=== PATIENT | male | born 1970 | race Caucasian/White ===

== ENCOUNTER 2016-11-11 01:20 | Outpatient (CLI) | payer MEDICARE, OTHER ==
[2016-11-11 01:37] LABS: Bilirubin Negative (Negative); Blood, Urine Trace (Negative); Glucose, Urine (Dipstick) 100 mg/dL (Negative); Ketone, Urine Negative (Negative); Nitrite Negative (Negative); Protein, Urine (Dipstick) 30 mg/dL (Neg-Trace); Urobilinogen 0.2 mg/dL (0.2-1.0)
[2016-11-11 01:41] LABS: Bacteria/HPF 1+ HPF (None Seen); Squamous Epithelial 0-3 HPF (0-3)
== END 2016-11-11 01:21 | disposition home or self-care (01) ==
LOC: NAV LAB 01:20
PROVIDERS: ATTEND Internal Medicine
DX: A41.9 Sepsis, unspecified organism (principal)
CPT/HCPCS: 81001; 87077; 87086

== ENCOUNTER 2016-12-29 08:07 | Outpatient (CLI) | payer MEDICARE ==
[2016-12-29 09:51] LABS: Hemoglobin A1c 7.8 % (4.0-6.0)
== END 2016-12-29 08:08 | disposition home or self-care (01) ==
LOC: NAV LABSP 08:07
PROVIDERS: ATTEND Internal Medicine
DX: E11.9 Type 2 diabetes mellitus without complications (principal)
CPT/HCPCS: 36415; 83036

== ENCOUNTER 2017-03-29 18:54 | Outpatient (CLI) | payer MEDICARE, MEDICAID | END 2017-03-29 18:55 | disposition home or self-care (01) | LOC: NAV LABSP 18:54 | PROVIDERS: ATTEND Internal Medicine | DX: Z43.0 Encounter for attention to tracheostomy (principal); K03.2 Erosion of teeth | CPT/HCPCS: 87081 ==

== ENCOUNTER 2017-04-30 22:39 | Emergency (ER) | payer MEDICARE, OTHER ==
[2017-04-30] MEDS ORDERED: Sodium Chloride 0.9% 500 ML ONE (23:13)
--- NOTE | 2017-04-30 23:24 | RAD ---
PORTABLE SEMIUPRIGHT FRONTAL CHEST RADIOGRAPH 04/30/17 COMPARISON: 03/03/17 HISTORY: Altered mental status. FINDINGS: There is elevation of the right hemidiaphragm, stable. Stable tracheostomy tube. Heart and mediastin al contours are unchanged. No pneumothorax, pleural fluid, focal consolidation or alveolar edema. IMPRESSION: No acute findings. POS: [facility]
--- NOTE | 2017-04-30 23:42 | CT ---
CT HEAD WITHOUT CONTRAST 04/30/17 COMPARISON: 12/20/14 HISTORY: Altered mental status, difficulty arousing patient. TECHNIQUE: Serial axial CT imaging at 5 mm intervals from vertex through skull base without contrast. FINDINGS: Imaged paranasal sinuses/mastoid air cells well aerated. No displaced calvarial fracture. No intracr anial hemorrhage, midline shift, mass effect, or ventricular enlargement. No significant interval ch chacho. IMPRESSION: Stable head CT. No intracranial hemorrhage. If there is clinical for acute infarction, followup brai n MRI advised. POS: [facility]
[2017-05-01] MEDS ORDERED: Sodium Chloride 0.9% 1,000 ML ONE (00:53)
[2017-05-01 01:30] LABS: Band 7 % (5-11); Hemoglobin 7.7 g/dL (14.0-18.0); Lymphocytes 11 % (21-51); MDiff Complete? YES; Mean Corpuscular HGB CONC 33.1 g/dL (32.0-36.0); Mean Corpuscular Hemoglobin 27.9 pg (27.0-31.0); Mean Corpuscular Volume 84.3 fl (80.0-94.0); Mean Platelet Volume 6.7 fL (7.4-10.4); Monocytes 10 % (0-10); Neutrophil 72 % (42-75); PLT Morphology Comment Appears Adequate; Platelet Count 205 thou/uL (130-400); RBC Morphology Normal; Red Blood Cell (RBC) Count 2.76 mill/uL (4.70-6.10); White Blood Cell (WBC) Count 18.1 thou/uL (4.8-10.8)
[2017-05-01 01:37] LABS: ALT (SGPT) 14 U/L (8-55); AST (SGOT) 10 U/L (5-34); Albumin 3.4 g/dL (3.5-5.0); Alkaline Phosphatase 79 U/L (40-150); Anion Gap 15 mmol/L (10-20); BUN (Urea Nitrogen) 26 mg/dL (8.9-20.6); Bilirubin, Total 0.4 mg/dL (0.2-1.2); CK (CPK) 66 U/L (30-200); Calc. Creatinine Clearance 0 mL/min (70-130); Calcium 9.1 mg/dL (7.8-10.44); Carbon Dioxide 21 mmol/L (22-29); Chloride 104 mmol/L (98-107); Estimated GFR-MDRD 51; Globulin 4.1 g/dL (2.4-3.5); Glucose 111 mg/dL (70-105); Lipase 4 U/L (8-78); Potassium 5.3 mmol/L (3.5-5.1); Protein, Total 7.5 g/dL (6.0-8.3); Sodium 135 mmol/L (136-145)
[2017-05-01 01:39] LABS: CKMB 1.9 ng/mL (0-6.6); Troponin I Less than 0.010 ng/mL (< 0.028)
[2017-05-01 02:08] LABS: Bilirubin Negative (Negative); Blood, Urine Negative (Negative); Clarity Clear (Clear); Glucose, Urine (Dipstick) Negative (Negative); Leukocyte Small (Negative); Nitrite Negative (Negative); Protein, Urine (Dipstick) Negative (Neg-Trace); Urobilinogen 0.2 mg/dL (0.2-1.0)
[2017-05-01 02:13] LABS: RBC/HPF None Seen HPF (0-3)
[2017-05-01 02:14] LABS: Bacteria/HPF 1+ HPF (None Seen); Squamous Epithelial 0-3 HPF (0-3)
[2017-05-01 02:23] LABS: Amphetamine Not Detected (NotDetected); Benzodiazepine Screen Not Detected (NotDetected); Cocaine Metabolite Screen Not Detected (NotDetected); Methamphetamine Not Detected (NotDetected); Opiate Screen Detected (NotDetected); Phencyclidine (PCP) Not Detected (NotDetected); THC/Cannabinoid Screen Not Detected (NotDetected)
[2017-05-01 02:24] LABS: Barbiturates Screen Not Detected (NotDetected); Medtox Control Line Valid? VALID (VALID); Methadone Not Detected (NotDetected); Oxycodone Screen Not Detected (NotDetected); Tricyclic Screen Detected (NotDetected)
== END 2017-05-01 03:40 | disposition short-term general hospital (02) ==
LOC: NAV ERS 22:39
DX: R41.82 Altered mental status, unspecified (principal); E86.0 Dehydration; E11.40 Type 2 diabetes mellitus with diabetic neuropathy, unspecified; E78.5 Hyperlipidemia, unspecified; G47.00 Insomnia, unspecified; I10 Essential (primary) hypertension; K21.9 Gastro-esophageal reflux disease without esophagitis; K59.00 Constipation, unspecified; D64.9 Anemia, unspecified; G82.50 Quadriplegia, unspecified; Z79.82 Long term (current) use of aspirin; Z79.84 Long term (current) use of oral hypoglycemic drugs; Z79.899 Other long term (current) drug therapy
CPT/HCPCS: 36415; 70450; 71010; 80053; 80306; 81003; 81015; 82140; 82550; 82553; 83605; 83690; 84484; 85025; 87040; 93005; 96361; 96365; J1956; J7050

== ENCOUNTER 2017-05-26 09:35 | Outpatient (CLI) | payer MEDICARE, MEDICAID ==
[2017-05-26 09:47] LABS: Blood, Urine Moderate (Negative); Clarity Cloudy (Clear); Glucose, Urine (Dipstick) Negative (Negative); Leukocyte Large (Negative); Nitrite Negative (Negative); Protein, Urine (Dipstick) 30 mg/dL (Neg-Trace); Specific Gravity, Urine 1.025 (1.005-1.030); Urobilinogen 0.2 mg/dL (0.2-1.0)
[2017-05-26 09:54] LABS: Bilirubin Negative (Negative); Icto Negative (Negative)
[2017-05-26 09:55] LABS: Bacteria/HPF 3+ HPF (None Seen); Crystals/HPF 2+ AMORPH URATES HPF (Negative); Squamous Epithelial 0-3 HPF (0-3)
[2017-05-26 09:57] LABS: Lactic Acid 2.6 mmol/L (0.5-2.2)
[2017-05-26 10:01] LABS: Anion Gap 16 mmol/L (10-20); BUN (Urea Nitrogen) 31 mg/dL (8.9-20.6); Calc. Creatinine Clearance 0 mL/min (70-130); Carbon Dioxide 19 mmol/L (22-29); Chloride 99 mmol/L (98-107); Estimated GFR-MDRD 48; Glucose 169 mg/dL (70-105); Hemoglobin 8.1 g/dL (14.0-18.0); MDiff Complete? YES; Mean Corpuscular HGB CONC 32.1 g/dL (32.0-36.0); Mean Corpuscular Hemoglobin 26.6 pg (27.0-31.0); Mean Corpuscular Volume 83.1 fl (80.0-94.0); Mean Platelet Volume 6.8 fL (7.4-10.4); Platelet Count 234 thou/uL (130-400); Potassium 5.1 mmol/L (3.5-5.1); RBC Distribution Width 13.7 % (11.5-14.5); Red Blood Cell (RBC) Count 3.05 mill/uL (4.70-6.10); Sodium 129 mmol/L (136-145); White Blood Cell (WBC) Count 14.3 thou/uL (4.8-10.8)
[2017-05-26 10:02] LABS: Anisocytosis SLIGHT = 6-15 cells (100X) (0-5/hpf); Eosinophils 2 % (0-10); Hypochromia SLIGHT = 6-15 cells (100X) (0-5/hpf); Lymphocytes 24 % (21-51); Monocytes 9 % (0-10); Neutrophil 65 % (42-75); Nucleated RBC 1 % (0); PLT Morphology Comment Appears Adequate
== END 2017-05-26 09:36 | disposition home or self-care (01) ==
LOC: NAV LABSP 09:35
PROVIDERS: ATTEND Internal Medicine
DX: A41.9 Sepsis, unspecified organism (principal)
CPT/HCPCS: 36415; 80048; 81001; 83605; 85025; 87077; 87086; 87186

== ENCOUNTER 2017-06-08 19:30 | Emergency (ER) | payer MEDICARE, MEDICAID ==
[2017-06-08] MEDS ORDERED: Sodium Chloride 0.9% 1,000 ML ONE (20:25)
[2017-06-08 20:30] LABS: #Basophils 0.1 thou/uL (0.0-0.2); #Eosinphils 1.4 thou/uL (0.0-0.7); #Lymphocytes 7.9 thou/uL (1.20-3.40); #Monocytes 0.9 thou/uL (0.11-0.59); %Basophils 0.8 % (0.0-1.0); %Eosinophils 11.2 % (0.0-10.0); %Lymphocytes 15.4 % (21.0-51.0); %Monocytes 7.3 % (0.0-10.0); %Neutrophils 65.2 % (42.0-75.0); Hemoglobin 9.7 g/dL (14.0-18.0); Mean Corpuscular HGB CONC 31.2 g/dL (32.0-36.0); Mean Corpuscular Volume 83.3 fl (80.0-94.0); Platelet Count 374 thou/uL (130-400); RBC Distribution Width 13.8 % (11.5-14.5); Red Blood Cell (RBC) Count 3.73 mill/uL (4.70-6.10); White Blood Cell (WBC) Count 12.2 thou/uL (4.8-10.8)
--- NOTE | 2017-06-08 20:41 | RAD ---
CHEST ONE VIEW 06/08/17 HISTORY: Hypotension. COMPARISON: 05/26/17. FINDINGS: The cardiac silhouette is magnified by projection. Pulmonary vasculature is unremarkable. Right judith diaphragm remains elevated. There is no confluent air space consolidation or evidence of pneumothora x. Tracheostomy appliance remains in place. IMPRESSION: Chronic type findings are stable. POS: [facility]
[2017-06-08 20:42] LABS: ALT (SGPT) 14 U/L (8-55); AST (SGOT) 14 U/L (5-34); Alkaline Phosphatase 99 U/L (40-150); Anion Gap 16 mmol/L (10-20); BUN (Urea Nitrogen) 23 mg/dL (8.9-20.6); Bilirubin, Total 0.2 mg/dL (0.2-1.2); Calc. Creatinine Clearance 0 mL/min (70-130); Calcium 10.2 mg/dL (7.8-10.44); Carbon Dioxide 25 mmol/L (22-29); Chloride 102 mmol/L (98-107); Estimated GFR-MDRD 52; Globulin 5.1 g/dL (2.4-3.5); Glucose 134 mg/dL (70-105); Protein, Total 9.1 g/dL (6.0-8.3); Sodium 136 mmol/L (136-145)
[2017-06-08 21:03] LABS: Potassium 6.6 mmol/L (3.5-5.1)
[2017-06-08] MEDS ORDERED: Albuterol Sulfate 2.5 mg/3 ml Neb ONE (21:16)
[2017-06-08] MEDS ORDERED: Calcium Chloride 1 GM/10 ML Abboject SYRINGE ONE (21:17)
[2017-06-08] MEDS ORDERED: Dextrose 50% Abboject 50 ML SYRINGE ONE (21:17)
[2017-06-08] MEDS ORDERED: Insulin Regular 300 UNITS/3 ML VIAL ONE (21:17)
[2017-06-08] MEDS ORDERED: Piperacillin/Tazobactam 3.375 GM VIAL ONE (21:33)
[2017-06-08] MEDS ORDERED: Sodium Chloride 0.9% 100 ML ONE (21:33)
[2017-06-08] MEDS ORDERED: Sodium Chloride 0.9% 500 ML ONE (21:38)
[2017-06-08 21:48] LABS: Bilirubin Small (Negative); Blood, Urine Negative (Negative); Clarity Hazy (Clear); Glucose, Urine (Dipstick) 250 mg/dL (Negative); Leukocyte Small (Negative); Nitrite Negative (Negative); Protein, Urine (Dipstick) 30 mg/dL (Neg-Trace); Urobilinogen 0.2 mg/dL (0.2-1.0)
[2017-06-08 22:07] LABS: Bacteria/HPF Rare-Few HPF (None Seen); RBC/HPF 0-3 HPF (0-3); Specific Gravity, Urine 1.025 (1.005-1.030); Squamous Epithelial 0-3 HPF (0-3); Transitional Epithelial 0-3 HPF (0-3)
== END 2017-06-08 22:35 | disposition short-term general hospital (02) ==
LOC: NAV ERS 19:30
DX: A41.9 Sepsis, unspecified organism (principal); T83.511A Infection and inflammatory reaction due to indwelling urethral catheter, initial encounter; N17.9 Acute kidney failure, unspecified; I95.9 Hypotension, unspecified; E87.5 Hyperkalemia; E87.2 Acidosis; I10 Essential (primary) hypertension; E78.5 Hyperlipidemia, unspecified; G82.50 Quadriplegia, unspecified; E66.9 Obesity, unspecified; E11.9 Type 2 diabetes mellitus without complications; N31.9 Neuromuscular dysfunction of bladder, unspecified; D64.9 Anemia, unspecified; F41.9 Anxiety disorder, unspecified; F32.9 Major depressive disorder, single episode, unspecified; Z93.0 Tracheostomy status; Z79.4 Long term (current) use of insulin; Z79.84 Long term (current) use of oral hypoglycemic drugs; Z79.82 Long term (current) use of aspirin; Z79.899 Other long term (current) drug therapy; K21.9 Gastro-esophageal reflux disease without esophagitis; G47.00 Insomnia, unspecified
CPT/HCPCS: 71010; 80053; 81003; 81015; 83605; 85025; 87040; 87086; 93005; 96361; 96365; 96375; J1815; J2543; J7050; J7611

== ENCOUNTER 2017-06-17 07:12 | Outpatient (CLI) | payer MEDICARE, MEDICAID ==
[2017-06-17 07:57] LABS: #Basophils 0.1 thou/uL (0.0-0.2); #Eosinphils 1.4 thou/uL (0.0-0.7); #Lymphocytes 2.5 thou/uL (1.20-3.40); #Monocytes 0.4 thou/uL (0.11-0.59); #Neutrophils 3.3 thou/uL (1.40-6.50); %Basophils 1.6 % (0.0-1.0); %Eosinophils 18.4 % (0.0-10.0); %Lymphocytes 32.4 % (21.0-51.0); %Neutrophils 42.5 % (42.0-75.0); Hemoglobin 8.7 g/dL (14.0-18.0); Mean Corpuscular HGB CONC 31.1 g/dL (32.0-36.0); Mean Corpuscular Hemoglobin 25.9 pg (27.0-31.0); Mean Corpuscular Volume 83.2 fl (80.0-94.0); Mean Platelet Volume 6.8 fL (7.4-10.4); Platelet Count 283 thou/uL (130-400); RBC Distribution Width 13.7 % (11.5-14.5); Red Blood Cell (RBC) Count 3.37 mill/uL (4.70-6.10); White Blood Cell (WBC) Count 7.7 thou/uL (4.8-10.8)
[2017-06-17 08:04] LABS: Anion Gap 13 mmol/L (10-20); BUN (Urea Nitrogen) 16 mg/dL (8.9-20.6); Calc. Creatinine Clearance 0 mL/min (70-130); Calcium 9.8 mg/dL (7.8-10.44); Carbon Dioxide 28 mmol/L (22-29); Chloride 104 mmol/L (98-107); Estimated GFR-MDRD Greater than 90; Glucose 117 mg/dL (70-105); Potassium 4.8 mmol/L (3.5-5.1); Sodium 140 mmol/L (136-145)
== END 2017-06-17 07:13 | disposition home or self-care (01) ==
LOC: NAV LABSP 07:12
PROVIDERS: ATTEND Internal Medicine
DX: N39.0 Urinary tract infection, site not specified (principal); E87.6 Hypokalemia
CPT/HCPCS: 36415; 80048; 85025

== ENCOUNTER 2019-01-19 11:35 | Outpatient (CLI) | payer MEDICARE, OTHER ==
[2019-01-19 11:48] LABS: #Basophils 0.1 thou/uL (0.0-0.2); #Eosinphils 0.5 thou/uL (0.0-0.7); #Monocytes 0.7 thou/uL (0.11-0.59); #Neutrophils 3.6 thou/uL (1.40-6.50); %Basophils 1.6 % (0.0-1.0); %Eosinophils 6.7 % (0.0-10.0); %Lymphocytes 28.8 % (21.0-51.0); %Monocytes 9.9 % (0.0-10.0); %Neutrophils 53.2 % (42.0-75.0); Hemoglobin 9.8 g/dL (14.0-18.0); Mean Corpuscular HGB CONC 31.5 g/dL (32.0-36.0); Mean Corpuscular Hemoglobin 25.7 pg (27.0-31.0); Mean Corpuscular Volume 81.6 fL (78.0-98.0); Mean Platelet Volume 7.6 fL (7.4-10.4); Platelet Count 313 thou/uL (130-400); RBC Distribution Width 14.2 % (11.5-14.5); Red Blood Cell (RBC) Count 3.81 mill/uL (4.70-6.10); White Blood Cell (WBC) Count 6.8 thou/uL (4.8-10.8)
[2019-01-19 11:56] LABS: Lactic Acid 2.6 mmol/L (0.5-2.2)
[2019-01-19 12:00] LABS: Anion Gap 16 mmol/L (10-20); BUN (Urea Nitrogen) 20 mg/dL (8.9-20.6); Calc. Creatinine Clearance 0 mL/min (70-130); Calcium 10.2 mg/dL (7.8-10.44); Carbon Dioxide 25 mmol/L (22-29); Chloride 101 mmol/L (98-107); Estimated GFR-MDRD 70; Glucose 153 mg/dL (70-105); Potassium 5.1 mmol/L (3.5-5.1); Sodium 137 mmol/L (136-145)
[2019-01-19 15:19] LABS: Bilirubin Negative (Negative); Blood, Urine Moderate (Negative); Glucose, Urine (Dipstick) Negative (Negative); Leukocyte Large (Negative); Nitrite Positive (Negative); Protein, Urine (Dipstick) 100 mg/dL (Neg-Trace); Urobilinogen 0.2 mg/dL (0.2-1.0); pH, Urine 5.5 (5.0-9.0)
[2019-01-19 15:30] LABS: Clarity Hazy (Clear)
[2019-01-19 15:31] LABS: Bacteria/HPF 3+ HPF (None Seen); RBC/HPF 0-3 HPF (0-3); Squamous Epithelial 0-3 HPF (0-3); WBC/HPF 21-50 HPF (0-3)
== END 2019-01-19 11:36 | disposition home or self-care (01) ==
LOC: NAV LABSP 11:35
PROVIDERS: ATTEND Internal Medicine
DX: R41.82 Altered mental status, unspecified (principal); R53.83 Other fatigue
CPT/HCPCS: 36415; 80048; 81001; 83605; 85025; 87077; 87086; 87186